=== PATIENT | male | born 1975 | race Caucasian/White ===

== ENCOUNTER 2023-01-02 07:02 | Day surgery (SDC) | payer BC ==
[2023-01-02] MEDS ORDERED: Propofol 200 MG/20 ML SDV ONE (07:26)
[2023-01-02] MEDS ORDERED: Midazolam 1 MG/ML 2 ML SDV ONE (07:26)
[2023-01-02] MEDS ORDERED: fentaNYL 50 MCG/ML SDV ONE (07:27)
[2023-01-02] MEDS ORDERED: Sodium Chloride 0.9% 1,000 ML IV SCH (07:30)
[2023-01-02 11:07] VITALS: BP 110/56; PULSE 83
== END 2023-01-02 11:25 | disposition home or self-care (01) ==
LOC: JP.SDS 07:02
PROVIDERS: ATTEND Surgery
DX: Z12.11 Encounter for screening for malignant neoplasm of colon (principal); I10 Essential (primary) hypertension; J45.909 Unspecified asthma, uncomplicated; K21.9 Gastro-esophageal reflux disease without esophagitis
CPT/HCPCS: 45378; J2250; J2704; J3010; J7030